=== PATIENT | female | born 1940 | race Caucasian/White ===

== ENCOUNTER 2016-12-09 12:00 | Emergency (ER) | payer OTHER, BC ==
--- NOTE | 2016-12-09 12:34 | EDPHY ---
H & P Stated Complaint: RLQ and occassional RUQ pain-since yesterday. - Personal History Current Tetanus/Diphtheria Vaccine: Yes Current Tetanus Diphtheria and Acellular Pertussis (TDAP): Yes Tetanus Vaccine Date: 2010 - Medical/Surgical History Hx Asthma: No Hx Chronic Respiratory Disease: No Hx Diabetes: No Hx Cardiac Disease: No Hx Renal Disease: No Hx Cirrhosis: No Hx Alcoholism: No Hx HIV/AIDS: No Hx Splenectomy or Spleen Trauma: No Other PMH: vertigo, kidney obstruction, HTN, Hypothyroid, high cholesterol, renauyds syndrome - Social History Smoking Status: Never smoked Time Seen by Provider: 12/09/16 12:34 Constitutional: Initial Vital Signs Temperature (C) 36.5 C 12/09/16 12:03 Heart Rate 84 12/09/16 12:03 Respiratory Rate 18 12/09/16 12:03 Blood Pressure 161/97 H 12/09/16 12:03 O2 Sat (%) 95 12/09/16 12:03 O2 Delivery Mode Nasal Cannula O2 (L/minute) 2 Allergies/Adverse Reactions: Penicillins Allergy (Severe, Verified 12/09/16 12:07) Rash to Hands gluten Allergy (Intermediate, Verified 12/09/16 12:09) Abdominal Pain lactose Allergy (Intermediate, Verified 12/09/16 12:09) Abdominal Pain Home Medications: Medication Instructions Recorded Cholecalciferol Vit D3 [Vitamin D3 2,000 units PO DAILY 06/11/12 2000 units] Levothyroxine [Synthroid 50 mcg 50 mcg PO DAILY06 06/11/12 (*)] Magnesium Oxide [Magnesium Oxide 400 mg PO DAILY 06/11/12 400 mg (*)] Multivitamins [Multivitamin (*)] 1 each PO DAILY 06/11/12 Nortriptyline HCl [Pamelor 10 mg 20 mg PO HS 06/11/12 (*)] Valsartan [Diovan (*)] 160 mg PO DAILY 06/11/12 Simvastatin [Zocor 20 mg] 20 mg PO HS 06/12/12 Aspirin EC [Aspirin EC 81 mg (*)] 81 mg PO DAILY 08/19/14 Estrogens,Conjugated [Premarin 1 simeon VG SUWE@21 08/19/14 Vaginal (*)] Herbals/Supplements -Info Only 1 ea PO DAILY 08/19/14 Metoprolol Succinate Xr [Toprol Xl 25 mg PO HS 08/19/14 25 mg (*)] Medical Decision Making - Diagnostics Imaging: Discussed imaging studies w/ shake cutter Radiologist - Diagnostics Imaging Results: Imaging Impressions Abdomen CT 12/09/16 13:06 Impression: 1. Bilateral prominent extrarenal pelvis right side greater than left with only mild dilatation of the ureters. Moderate to marked inferior pelvic floor prolapse is suspected with the uterus as well as base of the bladder subluxed inferiorly. This also pulls the distal ureters inferiorly with possible mild associated narrowing distally.. 2. No evidence of urinary tract calculus. 3.Extensive diverticulosis of the sigmoid colon with scattered diverticula seen elsewhere . 4. Mild constipation. Findings discussed with Chris Parkinson MD at 14:32 hour, 12/09/2016. ED Course/Re-evaluation: CHIEF COMPLAINT: Abdominal pain HISTORY OF PRESENT ILLNESS: The patient is a 76 y/o female complaining of right -sided waxing and waning abdominal pain worsening over the last day. She denies associated nausea, vomiting, fever, diarrhea. She has a history of a laparoscopic ureteral surgery, but no other abdominal surgeries. She does not remember if her last colonoscopy showed diverticula or not. REVIEW OF SYSTEMS: A 10 point review of systems was performed and is negative with the exception of the elements mentioned in the history of present illness. PHYSICAL EXAM: HR, BP, O2 Sat, RR. Temp noted General Appearance: Alert, well hydrated, appropriate, and non-toxic appearing. Head: Atraumatic without scalp tenderness or obvious injury Eyes: Pupils equal, round, reactive to light and accommodation, EOMI, no trauma , no injection. Nose: Atraumatic, no rhinorrhea, clear. Throat: mucus membranes moist. Neck: Supple, nontender, no lymphadenopathy. Respiratory: No retractions, no distress, no wheezes, and no accessory muscle use. Lungs are clear to auscultation bilaterally. Cardiovascular: Regular rate and rhythm, no murmurs, rubs, or gallops. Good capillary refill all extremities. Gastrointestinal: Abdomen is soft, mild tenderness to RLQ and right pericolic gutter, non-distended, no masses, no rebound, no guarding, no peritoneal signs. Musculoskeletal: Normal active ROM of all extremities, atraumatic. Neurological: Alert, appropriate, and interactive. Nonfocal neuro exam. Skin: No rashes, good turgor, no nodules on palpation. Past medical history: Hypertension, Reynaud's, hypothyroidism Past surgical history: Laparoscopic uretal surgery for kidney obstruction Family history: noncontributory Social history: DIAGNOSTICS/PROCEDURES/CRITICAL CARE TIME: Abdominal CT: nothing acute DIFFERENTIAL DIAGNOSIS: The differential diagnosis for the patient's abdominal pain included but was not limited to ovarian cyst, pelvic inflammatory disease, ovarian torsion, urinary tract infection, ectopic , cholecystitis, and appendicitis. MEDICAL DECISION MAKING: This is a 76 y/o female presenting with a one-day history of waxing and waning [id number] right-sided abdominal pain. She has mild RLQ tenderness on exam , otherwise unremarkable. She has no signs of systemic illness and is afebrile. Plan for IV, basic labs, UA, and abdominal CT. Labs are unremarkable. CT shows prolapsed uterus and vagina but nothing acute. Urine is still pending. (Chris Parkinson) Other Provider: [id number]: CT results discussed and urinalysis discussed with the patient. She will be discharged per Dr. Parkinson instructions with negative urinalysis. Instructed to follow up with her urologist at [facility] [place]. (Fuentes Metz) - Data Points Laboratory Results: Laboratory Results 12/09/16 12:27 12/09/16 12:27 12/09/16 12/09/16 12/09/16 15:37 13:23 12:27 WBC RBC Hgb POC Hgb 14.3 gm/dL gm/dL (12.3-15.9) Hct POC Hct 42 % % (35.5-47.5) MCV MCH MCHC RDW Plt Count MPV Neut % (Auto) Lymph % (Auto) [place] % (Auto) Eos % (Auto) Baso % (Auto) Nucleat RBC Rel Count Absolute Neuts (auto) Absolute Lymphs (auto) Absolute Monos (auto) Absolute Eos (auto) Absolute Basos (auto) Absolute Nucleated RBC Immature Gran % Immature Gran # POC Sodium 145 mEq/L H mEq/L (134-144) Sodium 140 mEq/L mEq/L (134-144) POC Potassium 3.6 mEq/L mEq/L (3.3-5.0) Potassium 3.9 mEq/L mEq/L (3.5-5.2) POC Chloride 105 mEq/L mEq/L (96-108) Chloride 103 mEq/L mEq/L (97-110) Carbon Dioxide 27 mEq/l mEq/l (22-31) Anion Gap 10 mEq/L mEq/L (8-16) POC BUN 11 mg/dL mg/dL (7-23) BUN 13 mg/dL mg/dL (7-23) Creatinine 0.8 mg/dL mg/dL (0.6-1.0) POC Creatinine 0.8 mg/dL mg/dL (0.6-1.2) Estimated GFR > 60 Glucose 95 mg/dL mg/dL (70-100) POC Glucose 97 mg/dL mg/dL (70-100) Calcium 10.2 mg/dL mg/dL (8.5-10.4) Total Bilirubin 0.5 mg/dL mg/dL (0.1-1.4) Conjugated Bilirubin 0.4 mg/dL mg/dL (0.0-0.5) Unconjugated Bilirubin 0.1 mg/dL mg/dL (0.0-1.1) AST 38 IU/L IU/L (14-46) ALT 36 IU/L IU/L (9-52) Alkaline Phosphatase 78 IU/L IU/L (38-126) Total Protein 7.0 g/dL g/dL (6.3-8.2) Albumin 4.1 g/dL g/dL (3.5-5.0) Lipase 177.0 IU/L IU/L (23-300) Urine Color YELLOW Urine Appearance CLEAR Urine pH 7.0 (5.0-7.5) Ur Specific [place] 1.017 (1.002-1.030) Urine Protein NEGATIVE (NEGATIVE) Urine Ketones NEGATIVE (NEGATIVE) Urine Blood NEGATIVE (NEGATIVE) Urine Nitrate NEGATIVE (NEGATIVE) Urine Bilirubin NEGATIVE (NEGATIVE) Urine Urobilinogen NEGATIVE EU EU (0.2-1.0) Ur Leukocyte Esterase NEGATIVE (NEGATIVE) Urine Glucose NEGATIVE (NEGATIVE) 12/09/16 12:27 WBC 6.00 10^3/uL 10^3/uL (3.80-9.50) RBC 4.89 10^6/uL 10^6/uL (4.18-5.33) Hgb 15.2 g/dL g/dL (12.6-16.3) POC Hgb Hct 45.2 % % (38.0-47.0) POC Hct MCV 92.4 fL fL (81.5-99.8) MCH 31.1 pg pg (27.9-34.1) MCHC 33.6 g/dL g/dL (32.4-36.7) RDW 13.3 % % (11.5-15.2) Plt Count 277 10^3/uL 10^3/uL (150-400) MPV 9.7 fL fL (8.7-11.7) Neut % (Auto) 46.3 % % (39.3-74.2) Lymph % (Auto) 37.7 % % (15.0-45.0) [place] % (Auto) 12.2 % % (4.5-13.0) Eos % (Auto) 2.3 % % (0.6-7.6) Baso % (Auto) 1.3 % % (0.3-1.7) Nucleat RBC Rel Count 0.0 % % (0.0-0.2) Absolute Neuts (auto) 2.78 10^3/uL 10^3/uL (1.70-6.50) Absolute Lymphs (auto) 2.26 10^3/uL 10^3/uL (1.00-3.00) Absolute Monos (auto) 0.73 10^3/uL 10^3/uL (0.30-0.80) Absolute Eos (auto) 0.14 10^3/uL 10^3/uL (0.03-0.40) Absolute Basos (auto) 0.08 10^3/uL 10^3/uL (0.02-0.10) Absolute Nucleated RBC 0.00 10^3/uL 10^3/uL (0-0.01) Immature Gran % 0.2 % % (0.0-1.1) Immature Gran # 0.01 10^3/uL 10^3/uL (0.00-0.10) POC Sodium Sodium POC Potassium Potassium POC Chloride Chloride Carbon Dioxide Anion Gap POC BUN BUN Creatinine POC Creatinine Estimated GFR Glucose POC Glucose Calcium Total Bilirubin Conjugated Bilirubin Unconjugated Bilirubin AST ALT Alkaline Phosphatase Total Protein Albumin Lipase Urine Color Urine Appearance Urine pH Ur Specific [place] Urine Protein Urine Ketones Urine Blood Urine Nitrate Urine Bilirubin Urine Urobilinogen Ur Leukocyte Esterase Urine Glucose Medications Given: Discontinued Medications Hydromorphone HCl (Dilaudid) 0.5 mg IVP EDNOW ONE Stop: 12/09/16 14:15 Last Admin: 12/09/16 14:25 Dose: 0.5 mg Sodium Chloride (Ns) 500 mls @ 1,500 mls/hr IV ONCE ONE Stop: 12/09/16 14:33 Last Admin: 12/09/16 14:25 Dose: 500 mls Ondansetron HCl (Zofran) 4 mg IVP EDNOW ONE Stop: 12/09/16 14:15 Last Admin: 12/09/16 14:25 Dose: 4 mg Point of Care Test Results: 12/09/16 13:23 POC Sodium 145 H POC Potassium 3.6 POC Chloride 105 POC BUN 11 POC Creatinine 0.8 POC Glucose 97 Departure - Departure Disposition: Home, Routine, Self-Care Clinical Impression: Abdominal pain Qualifiers: Abdominal location: right lower quadrant Qualified Code(s): R10.31 - Right lower quadrant pain Condition: Good Instructions: Acute Abdominal Pain (ED) Additional Instructions: 1. Your abdominal CT showed vaginal and rectal prolapse, though this is not likely the cause of your right-sided abdominal pain today. We recommend following up with your primary care provider and surgeon to discuss options for the prolapse. 2. Return to the ED for severe pain, incontinence, or other worsening of condition. Referrals: Cynthia Arellano MD [Primary Care Provider] - As per Instructions Florencio Higuera MD [Medical Doctor] - As per Instructions Everett Milner MD [Medical Doctor] - As per Instructions Report Scribed for: Chris Parkinson Report Scribed by: Florecita Cash Date of Report: 12/09/16 Time of Report: 13:02
[2016-12-09 13:14] LABS: % IMMATURE GRANULYOCYTES 0.2 % (0.0-1.1); ABSOLUTE IMMATURE GRANULOCYTES 0.01 10^3/uL (0.00-0.10); ADD DIFF? NO; ADD MORPH? NO; ADD SCAN? NO; ATYPICAL LYMPHOCYTE FLAG 10 (0-99); FRAGMENT RBC FLAG 0 (0-99); HEMATOCRIT 45.2 % (38.0-47.0); HEMOGLOBIN 15.2 g/dL (12.6-16.3); LEFT SHIFT FLG 0 (0-99); LIPEMIA HEMOLYSIS FLAG 80 (0-99); MEAN CELL HEMOGLOBIN 31.1 pg (27.9-34.1); MEAN CELL HEMOGLOBIN CONCENTR. 33.6 g/dL (32.4-36.7); MEAN CELL VOLUME 92.4 fL (81.5-99.8); MEAN PLATELET VOLUME 9.7 fL (8.7-11.7); PLATELET CLUMPS FLAG 0 (0-99); PLATELET COUNT 277 10^3/uL (150-400); RED BLOOD CELL COUNT 4.89 10^6/uL (4.18-5.33); RED CELL DISTRIBUTION WIDTH 13.3 % (11.5-15.2)
[2016-12-09 13:30] LABS: ALANINE AMINOTRANSFERASE 36 IU/L (9-52); ALBUMIN 4.1 g/dL (3.5-5.0); ALKALINE PHOSPHATASE 78 IU/L (38-126); ANION GAP 10 mEq/L (8-16); ASPARTATE AMINOTRANSFERASE 38 IU/L (14-46); BILIRUBIN,TOTAL 0.5 mg/dL (0.1-1.4); BILIRUBIN-CONJUGATED 0.4 mg/dL (0.0-0.5); BILIRUBIN-UNCONJUGATED 0.1 mg/dL (0.0-1.1); CALCIUM 10.2 mg/dL (8.5-10.4); CARBON DIOXIDE 27 mEq/l (22-31); CHLORIDE 103 mEq/L (97-110); CREATININE 0.8 mg/dL (0.6-1.0); GLOMERULAR FILTRATION RATE > 60; GLUCOSE 95 mg/dL (70-100); POTASSIUM 3.9 mEq/L (3.5-5.2); SODIUM 140 mEq/L (134-144)
[2016-12-09] MEDS ORDERED: IOPAMIDOL (ISOVUE-300) 100 ML BTL IV ONE ×2 (13:32→13:40)
[2016-12-09] MEDS ORDERED: ONDANSETRON 4 MG/2 ML VIAL IVP ONE (14:14)
[2016-12-09] MEDS ORDERED: HYDROmorphONE/DILAUDID 1 MG/ML SYR IVP ONE (14:14)
[2016-12-09] MEDS ORDERED: NS 500 ML IV ONE (14:14)
[2016-12-09 15:48] LABS: COLOR YELLOW; LEUKOCYTE ESTERASE,URINE NEGATIVE (NEGATIVE); NITRITE,URINE NEGATIVE (NEGATIVE)
[2016-12-09 16:21] VITALS: BP 140/92; PULSE 80; RESP 16; TEMP 98.4; O2SAT 96
== END 2016-12-09 16:19 | disposition home or self-care (01) ==
DX: R10.31 Right lower quadrant pain (principal); I10 Essential (primary) hypertension; Z79.82 Long term (current) use of aspirin
CPT/HCPCS: 74177; 96361; 96374; 96375; 99285; J1170; J2405; Q9967; 82947-QW

== ENCOUNTER 2017-02-25 15:15 | Emergency (ER) | payer OTHER, BC ==
[2017-02-25 15:31] VITALS: TEMP 97.3
--- NOTE | 2017-02-25 15:48 | EDPHY ---
H & P Stated Complaint: Fall HPI/ROS: CHIEF COMPLAINT: Mechanical fall, abrasions. HISTORY OF PRESENT ILLNESS: The patient is a 76-year-old female who presents after falling on the sidewalk and striking her head just prior to arrival. She presents with facial abrasions, headache, and abrasions to her hands and elbow. She did hit her head but did not lose consciousness. The fall was mechanical in nature. She denies preceding symptoms such as dizziness, chest pain, or shortness of breath. She denies weakness, numbness, paresthesias, recent sickness, vomiting, diarrhea, or other complaints. She does not take blood thinners. REVIEW OF SYSTEMS: A ten point review of systems was performed and is negative with the exception of the items mentioned in the HPI. Source: Patient Exam Limitations: No limitations - Personal History Tetanus Vaccine Date: 2010 - Medical/Surgical History Hx Asthma: No Hx Chronic Respiratory Disease: No Hx Diabetes: No Hx Cardiac Disease: No Hx Renal Disease: No Hx Cirrhosis: No Hx Alcoholism: No Hx HIV/AIDS: No Hx Splenectomy or Spleen Trauma: No Other PMH: 1. vertigo. 2. kidney obstruction. 3. HTN. 4. Hypothyroidism. 5. hypercholesterolemia. 6. Raynaud's syndrome - Social History Smoking Status: Never smoked Drug Use: None Additional Social History: 1. Lives alone. - Physical Exam Exam: General Appearance: Alert. Vital signs reviewed. Blood pressure 148/87. Head: Normocephalic, atraumatic. Eyes: Pupils equal and round, no conjunctival injection, no discharge. Anicteric. ENT, Mouth: Mucous membranes are moist, no oropharyngeal erythema or edema. No dental injury but central incisors tender to pressure, no subluxation. No septal hematoma. Abrasions over nose. Abrasions just below nose above right upper lip and involving philtrum. No trismus. Superficial laceration across oral mucosa of upper lip, no gaping. Neck: No midline cervical spine tenderness. Respiratory: Lungs are clear to auscultation; no wheezes, rales, or rhonchi. Cardiovascular: Regular rate and rhythm; no murmur, rub, or gallop. Gastrointestinal: Abdomen is soft and nontender, no masses or organomegaly, bowel sounds normal. Skin: Warm and dry, no rashes on exposed skin, normal color. Back: Nontender to palpation over the thoracolumbar spine. No CVAT. Extremities: Abrasion just distal to right elbow. Full active and passive ROM in right elbow and wrist. Abrasion to thenar eminence of right hand. Abrasion to hypothenar eminence of left hand. Neurological: Alert and oriented. Moving all four extremities easily and equally. Cranial nerves II through XII are examined and are intact (visual acuity not tested). Strength is 5 over 5 bilaterally with testing of all major motor groups. Sensation is intact to light touch over all 4 extremities. Deep tendon reflexes are 2+ in the biceps and knees bilaterally. Gait is normal. Psychiatric: Normal affect. Constitutional: Initial Vital Signs Temperature (C) 36.3 C 02/25/17 15:29 Heart Rate 93 02/25/17: Respiratory Rate 18 02/25/17 15:29 Blood Pressure 148/87 H 02/25/17 15:29 O2 Sat (%) 91 L 02/25/17:29 O2 Delivery Mode Room Air Allergies/Adverse Reactions: Penicillins Allergy (Severe, Verified 02/25/17 15:26) Rash to Hands gluten Allergy (Intermediate, Verified 02/25/17 15:26) Abdominal Pain lactose Allergy (Intermediate, Verified 02/25/17 15:26) Abdominal Pain Home Medications: Medication Instructions Recorded Cholecalciferol Vit D3 [Vitamin D3 2,000 units PO DAILY 06/11/12 2000 units] Levothyroxine [Synthroid 50 mcg 50 mcg PO DAILY06 06/11/12 (*)] Magnesium Oxide [Magnesium Oxide 400 mg PO DAILY 06/11/12 400 mg (*)] Multivitamins [Multivitamin (*)] 1 each PO DAILY 06/11/12 Nortriptyline HCl [Pamelor 10 mg 20 mg PO HS 06/11/12 (*)] Valsartan [Diovan (*)] 160 mg PO DAILY 06/11/12 Simvastatin [Zocor 20 mg] 20 mg PO HS 06/12/12 Aspirin EC [Aspirin EC 81 mg (*)] 81 mg PO DAILY 08/19/14 Estrogens,Conjugated [Premarin 1 simeon VG SUWE@21 08/19/14 Vaginal (*)] Herbals/Supplements -Info Only 1 ea PO DAILY 08/19/14 Metoprolol Succinate Xr [Toprol Xl 25 mg PO HS 08/19/14 25 mg (*)] Medical Decision Making ED Course/Re-evaluation: 76-year-old female presents with a superficial lip laceration and generalized abrasions after falling and striking her head just prior to arrival. I do not feel that the mouth laceration requires suturing. I do not feel a head CT is indicated in this patient. I have recommended she see her dentist (she has some pain in her front teeth) and have given her instructions on keeping her wounds clean. They will be cleaned here in the ED prior to discharge. She understands to take Tylenol for pain and headache. She will be given her first dose here along with an ice pack. She is comfortable with this plan. Differential Diagnosis: I considered a differential diagnosis of traumatic injury that includes but is not limited to intracranial hemorrhage, skull fracture, concussion, vertebral injury, spinal cord injury, intrathoracic injury, intra-abdominal injury, long bone fractures, contusions, abrasions, and lacerations. - Data Points Medications Given: Discontinued Medications Acetaminophen (Tylenol) 650 mg PO EDNOW ONE Stop: 02/25/17 16:34 Last Admin: 02/25/17 16:39 Dose: 650 mg Departure - Departure Disposition: Home, Routine, Self-Care Clinical Impression: Abrasions of multiple sites Fall Qualifiers: Encounter type: initial encounter Qualified Code(s): W19.XXXA - Unspecified fall, initial encounter Lip laceration Qualifiers: Encounter type: initial encounter Qualified Code(s): S01.511A - Laceration without foreign body of lip, initial encounter Condition: Good Instructions: Laceration (ED), Fall Prevention for Older Adults (ED), Abrasion (ED), Acute Wounds (ED) Additional Instructions: Follow up with your dentist for reevaluation. Use caution when brushing your upper teeth. If your lip begins to bleed, hold gauze over the bleeding area and hold pressure until the bleeding stops. Take 650mg Tylenol every 4-6 hours as needed for pain and headache. Keep wounds clean and dry. Return for any serious worsening of condition. Referrals: Cynthia Arellano MD [Primary Care Provider] - As per Instructions Report Scribed for: Shea Valenzuela Report Scribed by: Ron Colon Date of Report: 02/25/17 Time of Report: 15:52 Physician Review and Approval Statement: 02/25/17 15:48 Portions of this note were transcribed by the medical aide. I, Dr. Shea Valenzuela, personally performed the history, physical exam, and medical decision- making; and confirmed the accuracy of the information in the transcribed note.
[2017-02-25] MEDS ORDERED: ACETAMINOPHEN 325 MG TAB PO ONE (16:33)
[2017-02-25 16:54] VITALS: BP 138/67; PULSE 86; RESP 16; O2SAT 93
== END 2017-02-25 16:56 | disposition home or self-care (01) ==
DX: S01.511A Laceration without foreign body of lip, initial encounter (principal); S50.311A Abrasion of right elbow, initial encounter; S60.511A Abrasion of right hand, initial encounter; S60.512A Abrasion of left hand, initial encounter; I10 Essential (primary) hypertension; Z79.82 Long term (current) use of aspirin; W01.198A Fall on same level from slipping, tripping and stumbling with subsequent striking against other object, initial encounter; Y92.480 Sidewalk as the place of occurrence of the external cause

== ENCOUNTER → 2017-05-01 | Outpatient (CLI) | payer OTHER, BC | LOC: FIMAGING 14:12 | PROVIDERS: ATTEND Internal Medicine | DX: Z12.31 Encounter for screening mammogram for malignant neoplasm of breast (principal); Z80.3 Family history of malignant neoplasm of breast | CPT/HCPCS: G0202 ==

== ENCOUNTER → 2017-12-26 | Outpatient (CLI) | payer OTHER, BC | LOC: BMCIMAGING 13:34 | PROVIDERS: ATTEND Internal Medicine Rheumatology | DX: M19.041 Primary osteoarthritis, right hand (principal); M19.042 Primary osteoarthritis, left hand ==

== ENCOUNTER → 2018-05-25 | Outpatient (CLI) | payer OTHER, BC | LOC: BMCIMAGING 08:17 | PROVIDERS: ATTEND Internal Medicine | DX: Z12.31 Encounter for screening mammogram for malignant neoplasm of breast (principal) ==

== ENCOUNTER → 2018-11-05 | Outpatient (CLI) | payer OTHER, BC ==
[~2018-11-05] MED LIST: GADOBUTROL 10 ML VIAL IVP ONE
== END ==
LOC: FIMAGING 09:20
PROVIDERS: ATTEND Internal Medicine
DX: R90.89 Other abnormal findings on diagnostic imaging of central nervous system (principal); R41.3 Other amnesia
CPT/HCPCS: 70553; A9585